=== PATIENT | male | born 2000 | race Caucasian/White ===

== ENCOUNTER 2023-02-15 21:33 | Emergency (ER) | payer MEDICAID ==
[~2023-02-15] VITALS: Ht 182.9 cm; Wt 76.6 kg
[2023-02-15 21:52] VITALS: O2SAT 99
[2023-02-15] MEDS ORDERED: LIDOCAINE HCL/PF 1% 10 MG/ML 5ML VIAL INFIL ONE (22:00)
[2023-02-15] MEDS ORDERED: TETANUS, DIPHTHERIA, PERTUSSIS VAC/PF 0.5ML (>10YR OLD) IM ONE (22:00)
[2023-02-15] MEDS ORDERED: BACITRACIN ZINC OINT UDPKT TOP ONE (22:00)
[2023-02-15] MEDS ORDERED: BO1 TP (23:46)
[2023-02-15] MEDS ORDERED: NAPR-681 MT (23:46)
[2023-02-16] MEDS ORDERED: KETOROLAC 30MG/ML VIAL IM ONE
[2023-02-16] MEDS ORDERED: LIDOCAINE 5% PATCH TOP SCH
[2023-02-16 00:26] VITALS: BP 110/72
[2023-02-16 00:28] VITALS: PULSE 82; RESP 18; TEMP 98.1
== END 2023-02-16 00:29 | disposition home or self-care (01) ==
LOC: ER 21:33
DX: S16.1XXA Strain of muscle, fascia and tendon at neck level, initial encounter (principal); S46.911A Strain of unspecified muscle, fascia and tendon at shoulder and upper arm level, right arm, initial encounter; S80.212A Abrasion, left knee, initial encounter; S80.211A Abrasion, right knee, initial encounter; Z88.0 Allergy status to penicillin; V49.9XXA Car occupant (driver) (passenger) injured in unspecified traffic accident, initial encounter; Y93.89 Activity, other specified; Y92.89 Other specified places as the place of occurrence of the external cause; Y99.8 Other external cause status
CPT/HCPCS: 99283; 73560; 96372; J1885

== ENCOUNTER 2024-04-12 01:12 | Emergency (ER) | payer MEDICAID ==
[~2024-04-12] VITALS: Ht 182.9 cm; Wt 73.0 kg
[~2024-04-12 01:12] MED LIST: BO1 TP; NAPR-681 MT
[2024-04-12 01:40] VITALS: O2SAT 99
[2024-04-12] MEDS: LIDOCAINE HCL/PF 1% 10 MG/ML 5ML VIAL INFIL ONE (02:00)
[2024-04-12] MEDS: HYDROCODONE/ACETAMINOPHEN 5/325MG TABLET PO ONE (04:39)
[2024-04-12] MEDS: KETOROLAC 30MG/ML VIAL IM ONE (04:40)
[2024-04-12] MEDS: BACITRACIN ZINC OINT UDPKT TOP ONE (04:44)
[2024-04-12] MEDS ORDERED: SULF1TAB48 MT (05:23)
[2024-04-12] MEDS ORDERED: IBUP-2029 MT (05:23)
[2024-04-12 05:40] VITALS: BP 120/67; PULSE 88; RESP 14; TEMP 37.39188; O2SAT 97
== END 2024-04-12 05:40 | disposition home or self-care (01) ==
LOC: ER 01:12
DX: L02.31 Cutaneous abscess of buttock (principal); Z88.0 Allergy status to penicillin; Z79.899 Other long term (current) drug therapy
CPT/HCPCS: 10060; 96372; 99283; J1885; J3490; Z7610

== ENCOUNTER 2024-04-17 11:54 | Emergency (ER) | payer MEDICAID ==
[~2024-04-17] VITALS: Ht 182.9 cm; Wt 72.0 kg
[~2024-04-17 11:54] MED LIST changes: +IBUP-2029 MT; +SULF1TAB48 MT
[2024-04-17 12:24] VITALS: O2SAT 100
[2024-04-17 12:59] VITALS: BP 122/68; PULSE 88; RESP 16; TEMP 36.78072; O2SAT 100
== END 2024-04-17 12:59 | disposition home or self-care (01) ==
LOC: ER 12:04
DX: L02.31 Cutaneous abscess of buttock (principal); Z48.00 Encounter for change or removal of nonsurgical wound dressing; Z88.0 Allergy status to penicillin; Z79.899 Other long term (current) drug therapy
CPT/HCPCS: 99281

== ENCOUNTER 2024-10-31 13:44 | Emergency (ER) | payer SELFPAY ==
[~2024-10-31] VITALS: Ht 182.9 cm; Wt 73.0 kg
[2024-10-31 13:51] VITALS: O2SAT 98
[2024-10-31 14:10] VITALS: TEMP 36.9; O2SAT 98
[2024-10-31 16:12] VITALS: BP 125/61; PULSE 89; RESP 16
[2024-10-31] MEDS: KETOROLAC 30MG/ML VIAL IM ONE (16:12)
== END 2024-10-31 18:37 | disposition home or self-care (01) ==
LOC: ER 13:44
DX: L02.31 Cutaneous abscess of buttock (principal); Z88.0 Allergy status to penicillin; Z79.899 Other long term (current) drug therapy
CPT/HCPCS: 99283; 96372; J1885

== ENCOUNTER 2024-11-06 10:02 | Emergency (ER) | payer SELFPAY ==
[~2024-11-06] VITALS: Ht 182.9 cm; Wt 73.0 kg
[2024-11-06 10:06] VITALS: O2SAT 99
[2024-11-06 10:14] VITALS: BP 113/78; PULSE 73; RESP 18; TEMP 36.9; O2SAT 99
[2024-11-06] MEDS ORDERED: CIPR750T4 MT (11:05)
[2024-11-06] MEDS ORDERED: METR-167 MT (11:05)
== END 2024-11-06 11:39 | disposition home or self-care (01) ==
LOC: ER 10:02
DX: K62.89 Other specified diseases of anus and rectum (principal); Z79.1 Long term (current) use of non-steroidal anti-inflammatories (NSAID); Z79.899 Other long term (current) drug therapy; Z88.0 Allergy status to penicillin
CPT/HCPCS: 99283